=== PATIENT | female | born 1995 | race African-American/Black ===

== ENCOUNTER 2019-11-11 19:54 | Inpatient (IN) | payer MEDICAID ==
[~2019-11-11] VITALS: Ht 167.6 cm; Wt 61.2 kg
[2019-11-11] MEDS ORDERED: SODIUM CHLORIDE 0.9% 1,000 ML IV ONE (20:45)
[2019-11-11] MEDS ORDERED: MORPHINE SULFATE 4 MG/ML CPJ (NOT FOR IM USE) IV STA (20:45)
[2019-11-11] MEDS ORDERED: ONDANSETRON HCL 4MG/2ML INJ IV STA (20:45)
[2019-11-11 20:58] LABS: CLARITY URINE CLEAR (CLEAR); COLOR URINE DARK YELLOW (YELLOW); KETONES URINE 4+ (NEGATIVE); LEUKOCYTE ESTERASE URINE TRACE (NEGATIVE); NITRITE URINE NEGATIVE (NEGATIVE); OCCULT BLOOD URINE NEGATIVE (NEGATIVE); PH URINE 5.5 (4.5-8.0); PROTEIN URINE 2+ (NEGATIVE); SPECIFIC GRAVITY URINE 1.028 (1.005-1.030)
[2019-11-11 21:36] LABS: HEMATOCRIT. 39.5 % (36.0-48.0); HEMOGLOBIN. 13.8 g/dL (12.0-16.0); MEAN CORPUSCULAR HEMOGLOBIN 32.7 pg (28.0-32.0); MEAN CORPUSCULAR VOLUME 93.9 fL (81.0-99.0); PLATELET 214 x1000/uL (130-400); RED BLOOD CELL COUNT 4.21 mill/uL (4.2-5.4); RED CELL DISTRIBUTION WIDTH 17.5 % (11.6-14.6)
[2019-11-11 21:42] LABS: CHLORIDE 99 mEq/L (98-107)
[2019-11-11] MEDS ORDERED: NITROFURANTOIN 100MG M/M CAPSULE PO ONE (22:30)
[2019-11-11 23:20] LABS: PLATELET ESTIMATE NORMAL
[2019-11-12] VITALS (7 sets, daily range): BP systolic 141–167; BP diastolic 96–110
[2019-11-12] MEDS ORDERED: MORPHINE SULFATE 4 MG/ML CPJ (NOT FOR IM USE) IV ONE (02:45)
[2019-11-12] MEDS: DEXT 5%/0.45% NACL 1000ML 1,000 ML IV SCH ×2 (08:19→23:20)
[2019-11-12] MEDS: MORPHINE SULFATE 2 MG/ML CPJ (NOT FOR IM USE) IV PRN ×3 (08:33→18:13)
[2019-11-12 09:11] LABS: HEMATOCRIT. 36.7 % (36.0-48.0); HEMOGLOBIN. 12.5 g/dL (12.0-16.0); MEAN CORPUSCULAR HEMOGLOBIN 32.6 pg (28.0-32.0); MEAN CORPUSCULAR VOLUME 95.4 fL (81.0-99.0); MEAN PLATELET VOLUME 9.3 fl (7.4-10.4); PLATELET 177 x1000/uL (130-400); RED BLOOD CELL COUNT 3.85 mill/uL (4.2-5.4); RED CELL DISTRIBUTION WIDTH 17.2 % (11.6-14.6)
[2019-11-12 09:36] LABS: CHLORIDE 101 mEq/L (98-107)
[2019-11-12] MEDS ORDERED: ENALAPRIL 2.5MG/2ML VIAL 2ML IV SCH (12:00)
[2019-11-12] MEDS ORDERED: CLONIDINE HCL 0.1MG/24HR PATCH TD SCH (12:00)
[2019-11-12] MEDS: ONDANSETRON HCL 4MG/2ML INJ IV PRN (13:15)
[2019-11-12] MEDS: ENALAPRIL 1.25 MG in DEXTROSE 5% WATER 50 ML IV SCH ×2 (13:16→18:08)
[2019-11-12 14:24] LABS: NUCLEATED RED BLOOD CELLS 1 /100 WBC; PLATELET ESTIMATE NORMAL
[2019-11-13] VITALS: BP 147/96
[2019-11-13] MEDS: ENALAPRIL 1.25 MG in DEXTROSE 5% WATER 50 ML IV SCH ×4 (01:04→17:03)
[2019-11-13 04:00] VITALS: BP 136/96
[2019-11-13 08:00] VITALS: BP 131/94
[2019-11-13] MEDS: ONDANSETRON HCL 4MG/2ML INJ IV PRN (09:37)
[2019-11-13] MEDS: MORPHINE SULFATE 2 MG/ML CPJ (NOT FOR IM USE) IV PRN ×2 (10:19→22:22)
[2019-11-13 12:00] VITALS: BP 138/103
[2019-11-13 15:53] VITALS: BP 144/102
[2019-11-13 20:00] VITALS: BP 131/90
[2019-11-14] VITALS: BP 136/87
[2019-11-14] MEDS: ENALAPRIL 1.25 MG in DEXTROSE 5% WATER 50 ML IV SCH ×4 (01:11→18:56)
[2019-11-14 04:00] VITALS: BP 115/77
[2019-11-14 06:47] LABS: CHLORIDE 98 mEq/L (98-107)
[2019-11-14 07:11] LABS: HEMATOCRIT. 36.7 % (36.0-48.0); HEMOGLOBIN. 12.6 g/dL (12.0-16.0); MEAN CORPUSCULAR HEMOGLOBIN 32.7 pg (28.0-32.0); MEAN CORPUSCULAR VOLUME 95.2 fL (81.0-99.0); MEAN PLATELET VOLUME 9.7 fl (7.4-10.4); PLATELET 146 x1000/uL (130-400); RED BLOOD CELL COUNT 3.86 mill/uL (4.2-5.4); RED CELL DISTRIBUTION WIDTH 17.9 % (11.6-14.6)
[2019-11-14 08:00] VITALS: BP 124/73
[2019-11-14 09:28] LABS: HCG SCREEN NEGATIVE
[2019-11-14] MEDS: MORPHINE SULFATE 2 MG/ML CPJ (NOT FOR IM USE) IV PRN ×2 (09:41→22:12)
[2019-11-14 11:47] LABS: PLATELET ESTIMATE NORMAL
[2019-11-14 12:00] VITALS: BP 128/81
[2019-11-14 15:51] VITALS: BP 119/87
[2019-11-14 20:00] VITALS: BP 131/78
[2019-11-15] VITALS: BP 129/83
[2019-11-15] MEDS: ENALAPRIL 1.25 MG in DEXTROSE 5% WATER 50 ML IV SCH ×2 (00:16→05:18)
[2019-11-15 04:00] VITALS: BP 103/70
[2019-11-15 05:39] LABS: CHLORIDE 98 mEq/L (98-107)
[2019-11-15 08:00] VITALS: BP 117/69
[2019-11-15 12:00] VITALS: BP 119/65
[2019-11-15 13:56] LABS: PHOSPHORUS 3.6 mg/dL (2.5-4.9)
[2019-11-15] MEDS: DEXT 5%/0.45% NACL 1000ML 1,000 ML IV SCH (14:00)
[2019-11-15] MEDS ORDERED: POTASSIUM CHLORIDE INJ 40 MEQ in DEXT 5% WATER 500 ML IV ONE (14:30)
[2019-11-15 16:00] VITALS: BP 125/78
[2019-11-15] MEDS ORDERED: MAGNESIUM 2 G PREMIX 50 ML IV NR (17:30)
[2019-11-15] MEDS ORDERED: MORPHINE SULFATE 2 MG/ML CPJ (NOT FOR IM USE) IV PRN (19:25)
[2019-11-15] MEDS ORDERED: POTASSIUM CHLORIDE 20MEQ TABLET SR PO SCH (19:30)
[2019-11-15 20:00] VITALS: BP 125/76
[2019-11-15] MEDS ORDERED: MAGNESIUM 2 G PREMIX 50 ML IV SCH (21:30)
[2019-11-16] VITALS: BP 143/87
[2019-11-16 04:00] VITALS: BP 137/84
[2019-11-16 06:52] LABS: HEMATOCRIT. 36.4 % (36.0-48.0); HEMOGLOBIN. 12.5 g/dL (12.0-16.0); MEAN CORPUSCULAR HEMOGLOBIN 32.4 pg (28.0-32.0); MEAN CORPUSCULAR VOLUME 94.5 fL (81.0-99.0); MEAN PLATELET VOLUME 9.7 fl (7.4-10.4); PLATELET 176 x1000/uL (130-400); RED BLOOD CELL COUNT 3.85 mill/uL (4.2-5.4); RED CELL DISTRIBUTION WIDTH 18.5 % (11.6-14.6)
[2019-11-16 07:35] LABS: CHLORIDE 97 mEq/L (98-107)
[2019-11-16 08:00] VITALS: BP 129/85
[2019-11-16] MEDS ORDERED: POTASSIUM CHLORIDE 20MEQ TABLET SR PO NR ×4 (10:00→13:00)
[2019-11-16 12:00] VITALS: BP 127/82
[2019-11-16 16:00] VITALS: BP 135/80
[2019-11-16 17:53] VITALS: BP 119/78
[2019-11-17 09:34] LABS: PLATELET ESTIMATE NORMAL
== END 2019-11-16 18:30 | disposition home or self-care (01) | DRG 282 ==
LOC: ER 19:54 → ENRESERV 11-12 03:34 → 6EST 11-12 03:56 → CMPBEDREQ 11-13 06:35
PROVIDERS: ADMIT Hospitalist; ATTEND Hospitalist
DX: K85.20 Alcohol induced acute pancreatitis without necrosis or infection (principal); E87.6 Hypokalemia; F10.10 Alcohol abuse, uncomplicated; I10 Essential (primary) hypertension; Z79.899 Other long term (current) drug therapy
CPT/HCPCS: 36415; 74176; 76705; 80048; 80051; 80053; 81003; 83735; 84100; 84703; 85025; 99285; J2270; J2405; J3475; J3480; J3490; J7030; J7060